=== PATIENT | female | born 1995 | race Two or more races ===

== ENCOUNTER 2018-02-08 02:12 | Emergency (ER) | payer SELFPAY ==
[~2018-02-08] VITALS: Ht 170.2 cm; Wt 63.5 kg
[2018-02-08 02:28] VITALS: BP 110/68
[2018-02-08 02:56] LABS: Basophils # (auto) 0.1 uL; Basophils % (auto) 0.5 % (0.0-2.0); Eosinophils # (auto) 0.4 uL; Hematocrit 35.6 % (41.0-53.0); Lymphocytes # (auto) 3.5 uL; Lymphocytes % (auto) 32.7 % (10.0-50.0); Mean Corpuscular Hemoglobin 30.2 pg (28.0-32.0); Mean Corpuscular Hgb Conc. 33.6 g/dL (32.0-36.0); Mean Corpuscular Volume 89.8 fL (80.0-100.0); Monocytes # (auto) 0.7 uL; Monocytes % (auto) 6.4 % (0.0-12.0); Neutrophils # (auto) 6.1 uL; Neutrophils % (auto) 56.4 % (37.0-80.0); Nucleated Red Blood Cells % 0.1 %; Platelet Count (auto) 279 10^3/uL (140-450); Red Blood Cells 3.96 10^6/uL (4.5-5.90); Red Cell Distribution Width 13.8 % (11.8-14.3); White Blood Cell 10.9 10^3/uL (4.4-10.8)
[2018-02-08 03:09] LABS: Urine WBC None Seen /hpf (0 - 3)
[2018-02-08 03:15] LABS: Albumin 3.6 g/dL (3.4-5.0); Calcium 8.6 mg/dL (8.5-10.1); Chloride 106 mmol/L (98-107); Potassium 3.5 mmol/L (3.5-5.1); Sodium 139 mmol/L (136-145)
[2018-02-08 03:17] LABS: Alanine Aminotransferase 50 U/L (16-61); Anion Gap 11 (5-15); Aspartate Aminotransferase 55 U/L (15-37); BUN/Creatinine Ratio 13.6; Blood Alcohol < 3.0 mg/dL (0-5); Blood Urea Nitrogen 11 mg/dL (7-18); Carbon Dioxide 22 mmol/L (21-32); GFR African American 156 mL/min; GFR Non-African American 129 mL/min; Glucose 177 mg/dL (74-106)
[2018-02-08 03:20] LABS: Alkaline Phosphatase 104 U/L (45-117); Bilirubin, Total 0.2 mg/dL (0.2-1.0); Total Protein 7.3 g/dL (6.4-8.2)
[2018-02-08 03:26] LABS: Acetaminophen < 2.0 ug/mL (10-30); Salicylate 3.5 mg/dL (2.8-20.0)
[2018-02-08 03:27] LABS: Alcohol, Urine < 3.0 mg/dL (0-5); Amphetamine Screen, Urine NEGATIVE (NEGATIVE); Barbiturate Scree,Urine NEGATIVE (NEGATIVE); Benzodiazephine Screen, Urine NEGATIVE (NEGATIVE); Cannabinoid Screen, Urine POSITIVE (NEGATIVE); Cocaine Screen, Urine NEGATIVE (NEGATIVE); Opiate Scree,Urine POSITIVE (NEGATIVE); Phencyclidine Screen, Urine NEGATIVE (NEGATIVE)
[2018-02-08 03:42] LABS: Urine Amorphous Crystal FEW /hpf (None Seen); Urine Bacteria NONE SEEN /hpf (None Seen); Urine Blood Negative /uL (Negative); Urine Mucus FEW (None Seen); Urine Specific Gravity 1.026 (1.001-1.035)
[2018-02-08] MEDS ORDERED: cefTRIAXone 1GM/10ml IVPUSH 10 ML IV ONE (03:45)
[2018-02-08 03:47] LABS: Urine Pregnacy Test Negative
== END 2018-02-08 05:17 | disposition home or self-care (01) ==
LOC: EDBD 02:12 → ER 02:19 → EDSEX 02:19 → ER 05:17
DX: R41.82 Altered mental status, unspecified (principal); N39.0 Urinary tract infection, site not specified; F19.10 Other psychoactive substance abuse, uncomplicated
CPT/HCPCS: 36415; 80053; 80307; 80320; 80329; 81001; 81025; 85025; 87086; 93005; 96374